=== PATIENT | male | born 2000 | race Caucasian/White ===

== ENCOUNTER 2021-05-07 13:25 | Emergency (ER) | payer OTHER, SELFPAY ==
[2021-05-07 13:56] VITALS: BP 133/94; PULSE 95; RESP 18; TEMP 36.1; O2SAT 98; BMI 22.6
--- NOTE | 2021-05-07 14:24 | ED.ASTHMA ---
HPI - Asthma General Chief Complaint: Asthma Stated Complaint: asthma flare up Time Seen by Provider: 05/07/21 14:21 Source: patient Mode of arrival: ambulatory Limitations: no limitations History of Present Illness HPI Narrative: 20-year-old male pat medical history significant for asthma presents to the emergency department with complaints of shortness of breath on exertion, he feels like this is his typical asthma exacerbation. 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 He tells me that he has been feeling short of breath for 2 days. No sick contacts. Patient is not vaccinated against COVID. He denies sore throat, cough, fevers, chills, nausea, vomiting, chest pain, weakness, headache, dizziness. He has never needed intubation the because of asthma. MD complaint: asthma attack Onset (ago): day(s) (2) Severity: moderate Context: ran out of meds (no longer has a PCP) Associated symptoms: none Asthma History: childhood onset Treatments Prior to Arrival: other (OTC inhaler ) Related Data Previous Rx's Medication Instructions Recorded albuterol sulfate 2.5 mg/0.5 mL 5 mg INHALATION Q6H PRN #30 ea 05/07/21 solution for nebulization albuterol sulfate 90 mcg/actuation 2 inh INHALATION Q4-6H PRN #1 ea 05/07/21 breath activated powder inhaler prednisone 20 mg tablet 40 mg PO DAILY 5 Days #10 tab 05/07/21 Allergies Allergy/AdvReac Type Severity Reaction Status Date / Time No Known Allergies Allergy Unverified 01/07/20 17:01 Review of Systems Review of Systems: Constitutional : No Weight loss, No Fever, No Chills, No Fatigue, No Malaise ENT/Mouth : No sore throat, No Rhinorrhea Eyes: No Eye Pain, No Swelling, No Redness Cardiovascular : No Chest Pain, No SOB, + Dyspnea on Exertion, No Orthopnea, No Edema, No Palpitations Respiratory : No Cough, No Sputum, No Wheezing Gastrointestinal : No Nausea, No Vomiting, No Diarrhea, No Constipation, No abdominal Pain, No Hematochezia, No Melena Genitourinary : No Dysuria, No Urinary Frequency, No Hematuria, Musculoskeletal : No joint pain, No Myalgias, No Joint Swelling Skin : No Skin Lesions, No rash Neuro : No Weakness, No Numbness, No Dizziness, No Headache All other systems reviewed and are negative Yes all other systems are reviewed and are negative [facility] Past Medical History Attestation statement: The following information was validated with the patient. Source: old records reviewed and nursing notes reviewed Medical History Asthma Social History Social History Advance Directives: No Advance Directives Information Provided: Yes Physical Exam Vital Signs: Vital Signs: Last Vital Signs Temp 97 F 05/07/21 13:56 Pulse 95 05/07/21 13:56 Resp 18 05/07/21 13:56 BP 133/94 H 05/07/21 13:56 Pulse Ox 98 05/07/21 13:56 BMI result Body Mass Index 22.6 VSS Appearance: Alert.? Oriented X3.? No acute distress.? No use of accessory muscles for breathing. Head: Normocephalic, atraumatic, no step-offs or deformities Eyes: Pupils equal, round and reactive to light.? ENT: Pharynx normal.? Neck: Normal inspection.? Neck supple.? CVS: Normal heart rate and rhythm.? Pulses normal.? Respiratory: No respiratory distress.?+ expiratory wheezes Abdomen: Soft and nontender.? Skin: Skin warm and dry.? Normal skin color.? Normal skin turgor.? Extremities: No lower extremity edema.? No calf ttp. 5/5 strength to bilateral upper and lower extremities Back: No midline tenderness, no C-spine tenderness, full range of motion, no CVA tenderness bilaterally Neuro: Oriented X 3.? No motor deficit.? No sensory deficit. Course Reevaluation(s) Reevaluation #1: COVID negative. Time: 15:25 Reevaluation #2: Patient reports significant improvement after Decadron and DuoNeb. Wheezing has resolved. I will discharge patient home with albuterol inhaler, and nebulized treatments. Time: 16:22 MDM - Asthma MDM Narrative Medical decision making narrative: 1428 20 yo male presents to ed with complaints of SOB on exertion, feels like his typical asthma attack . Not vaccinated. No recent sick contacts PE significant for expiratory wheezing Plan- duoneb. Medical Records Attestation: I reviewed the patient's medical records. Lab Data Attestation: I reviewed the patient's lab results. Labs: Lab Results 05/07/21 Range/Units 14:05 COVID-19 (BESSY) Negative (Negative) COVID-19 Clin Com See Note Critical Care Time Critical Care Time Critical Care Time: No Discharge Plan Discharge Clinical Impression: Asthma with acute exacerbation Patient Disposition: Home, Self-Care Instructions: Asthma (ED), How to Use a Breath-Activated Inhaler (ED) Additional Instructions: Take your medications as prescribed. If you were prescribed antibiotics today, it is important that you take your medication to their entirety, do not skip any doses, do not finish them early. Follow-up with your primary care provider this week. Return to the emergency department with new or worsening symptoms. Such as chest pain shortness of breath, nausea, vomiting, abdominal pain, headache, dizziness, fevers, chills In case of emergency call 911 Medication was sent to [facility] on [facility] in [place]. We gave you a list of PCP providers I advise you set up an appointment with a PCP Prescriptions: New albuterol sulfate 90 mcg/actuation aerosol powdr breath activated 2 inh inhalation Q4-6H PRN (Reason: shortness of breath or wheezing) Qty: 1 RF: 3 prednisone 20 mg tablet 40 mg PO DAILY 5 Days Qty: 10 RF: 0 albuterol sulfate 2.5 mg/0.5 mL solution for nebulization 5 mg inhalation Q6H PRN (Reason: shortness of breath or wheezing) Qty: 30 RF: 0 Referrals: Physician,Unknown J [Primary Care Provider] - 2 days Stand Alone Forms: Work/School Release
[2021-05-07 14:34] LABS: IDNOW Serial# 55D5AD1C
[2021-05-07 14:35] LABS: COVID-19 Test Negative (Negative)
[2021-05-07] MEDS: dexAMETHasone sod phosphate 10 MG/ML VIAL IVPUSH (14:59)
[2021-05-07] MEDS: Albuterol/Iprat 2.5/0.5MG 3 ML AMPUL.NEB INHALE (16:03)
== END 2021-05-07 16:50 | disposition home or self-care (01) ==
PROVIDERS: Emergency Provider Emergency Medicine
DX: J45.901 Unspecified asthma with (acute) exacerbation (principal); Z20.822 Contact with and (suspected) exposure to COVID-19; Z79.899 Other long term (current) drug therapy
CPT/HCPCS: 87635; 96374; 99283; J1100

== ENCOUNTER 2021-10-27 10:48 | Emergency (ER) | payer OTHER, SELFPAY ==
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
[2021-10-27 10:52] VITALS: BP 130/80; PULSE 8; O2SAT 97
[2021-10-27 10:53] VITALS: BP 118/76; PULSE 80; RESP 18; TEMP 36.6; O2SAT 96; BMI 21.7
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
== END 2021-10-27 13:45 | disposition home or self-care (01) ==
PROVIDERS: Emergency Provider Emergency Medicine; PCP Pediatrics
DX: S40.011A Contusion of right shoulder, initial encounter (principal); V43.62XA Car passenger injured in collision with other type car in traffic accident, initial encounter; M79.641 Pain in right hand; Y93.89 Activity, other specified; Y92.414 Local residential or business street as the place of occurrence of the external cause; Y99.9 Unspecified external cause status
CPT/HCPCS: 73030; 73130; 99283

== ENCOUNTER 2022-09-06 00:03 | Emergency (ER) | payer OTHER, SELFPAY ==
[2022-09-06 00:37] VITALS: BP 126/82; PULSE 100; RESP 16; TEMP 37.1; O2SAT 97; BMI 25.0
--- NOTE | 2022-09-06 04:29 | ED_ITS ---
HPI - Ear Problem General Chief complaint: Ear Problems Stated complaint: ? ear/sinus infection Time Seen by Provider: 09/06/22 04:20 Source: patient Mode of arrival: ambulatory Limitations: no limitations History of Present Illness HPI Narrative: 21-year-old male who presents emergency department for evaluation of bilateral ear pain and sinus pain. The patient states 4 days prior he had an asthma exacerbation and went to a clinic. He was started on albuterol nebulizers, albuterol inhaler and prednisone 40 mg once a day for 5 days. He has been taking the prednisone for 3 days. He states that over the past 2 days he has been having bilateral ear pain, decreased hearing and pressure with pain to his face over the frontal maxillary sinuses. He denied fever but he states that he has been experiencing chills. He has had a cough which is nonproductive. He denied chest pain. He states that his shortness of breath from his asthma exacerbation is significantly improved. Related Data Previous Rx's Medication Instructions Recorded albuterol sulfate 2.5 mg/0.5 mL 5 mg inhalation Q6H PRN shortness 05/07/21 solution for nebulization of breath or wheezing #30 ea albuterol sulfate 90 mcg/actuation 2 inh inhalation Q4-6H PRN 05/07/21 breath activated powder inhaler shortness of breath or wheezing #1 ea prednisone 20 mg tablet 40 mg PO DAILY 5 days #10 tabs 05/07/21 amoxicillin 500 mg capsule 1,000 mg PO BID 10 days #40 caps 09/06/22 Allergies Allergy/AdvReac Type Severity Reaction Status Date / Time No Known Allergies Allergy Unverified 01/07/20 17:01 Review of Systems Review of Systems: Yes all other systems are reviewed and are negative [facility] Past Medical History [facility] Narrative: Past medical history: Asthma. Social history: He denies tobacco use. He occasionally drinks alcohol. He denies drug use. Medical History Asthma Social History Social History Smoked in Last 30 Days: No Use of substances other than those prescribed or required for medical reasons: No Advance Directives: No Advance Directives Information Provided: No Physical Exam Vital Signs: Vital Signs: Last Vital Signs Temp 98.8 F 09/06/22 00:37 Pulse 100 09/06/22 00:37 Resp 16 09/06/22 00:37 BP 126/82 09/06/22 00:37 Pulse Ox 97 09/06/22 00:37 O2 Del Method Room Air 09/06/22 00:37 BMI result Body Mass Index 25.0 Const: General: cooperative and no acute distress Orientation/consciousness: oriented to person and oriented to place Limitations: no limitations HEENT: Head: Yes normal to inspection, Yes normocephalic and Yes atraumatic Ears: external ears normal and TM abnormal (Bilateral) erythematous and with loss of landmarks General nose exam: Normal external nose present Face and sinus: Yes sinus tenderness (Frontal and maxillary sinuses) Mouth: Normal oral and palatal mucosa present Throat: Yes posterior oropharynx normal Eyes: General: appearance normal, both eyes and all related structures Pupils: Equal, round and reactive pupils present Neck: Neck: Yes normal visual inspection, Yes no lymphadenopathy, Yes trachea midline and Yes supple Resp: Effort & Inspection: normal respiratory effort and able to speak in complete sentences Auscultation: clear to auscultation bilaterally Cardio: Rate: regular rate Rhythm: regular rhythm Heart sounds: S1 normal heart sound present, S2 normal heart sound present and no murmurs GI: Inspection: Yes normal to inspection Palpation (GI): Soft to palpation, nontender and no guarding Auscultation: normal bowel sounds Neuro: General: oriented to person and oriented to place Cranial nerves: Yes CN's II-XII intact bilaterally and Yes Equal, round and reactive pupils present Cognition (Neuro): normal cognition Motor exam (neuro): 5/5 motor strength present throughout Extrem: General: Yes normal to inspection Psych: Appearance: grossly normal Speech and movement: Normal speech and movement present Affect: normal affect Attitude: cooperative Medical Decision Making Medical Decision Making MDM Narrative: 21-year-old male with history of asthma with recent asthma exacerbation currently taking prednisone 40 mg daily for 5 days presents with 2 days of bilateral ear pain and 5th facial/frontal/maxillary sinus pain. Vital signs were normal. Physical examination is consistent with maxillary and sinus sinusitis as well as bilateral otitis media. Patient was started on amoxicillin 1000 mg twice a day for 10 days, Tylenol 1000 mg every 6 hours as needed for pain. Patient was told to complete his course of prednisone after completing this course he can take ibuprofen 40 mg 3 times a day as needed for pain. Patient was given printed and verbal instructions and discharged home Differential Diagnosis Differential diagnosis includes was not limited to sinusitis, otitis media, viral syndrome Discharge Plan Discharge Clinical Impression: Otitis media Qualifiers: Chronicity: acute Laterality: bilateral Sinusitis Qualifiers: Chronicity: acute Recurrence: non-recurrent Patient Disposition: Home, Self-Care Instructions: Sinusitis (ED), Ear Infection (ED) Additional Instructions: Your tympanic membranes in both ears are very red and swollen which is consistent with your infections. Your also tender when I push on your frontal and maxillary sinuses which are consistent with a sinus infection. Take amoxicillin 1000 mg twice a day for 10 days. While you are taking prednisone, do not take any NSAIDs (Motrin, Advil, ibuprofen, Aleve, naproxen). After you finish her prednisone take ibuprofen 200 mg pills, 2 pills every 6 hours as needed for pain. Take Tylenol (acetaminophen) 500 mg pills, 2 pills every 6 hours as needed for pain. Follow-up with your doctor in 2 days. Please return to the emergency department if your symptoms get worse or if you develop any symptoms that are concerning to you. Prescriptions: New amoxicillin 500 mg capsule 1,000 mg PO BID 10 Days Qty: 40 0RF No Action albuterol sulfate 90 mcg/actuation aerosol powdr breath activated 2 inh inhalation Q4-6H PRN (Reason: shortness of breath or wheezing) Qty: 1 3RF prednisone 20 mg tablet 40 mg PO DAILY 5 Days Qty: 10 0RF albuterol sulfate 2.5 mg/0.5 mL solution for nebulization 5 mg inhalation Q6H PRN (Reason: shortness of breath or wheezing) Qty: 30 0RF
[2022-09-06] MEDS: Acetaminophen 325 MG TABLET 975 MG PO (04:59)
[2022-09-06] MEDS: Amoxicillin 500 MG CAPSULE 1000 MG PO (05:00)
== END 2022-09-06 05:03 | disposition home or self-care (01) ==
PROVIDERS: Emergency Provider Emergency Medicine Emergency Medical Services
DX: H66.93 Otitis media, unspecified, bilateral (principal); J01.80 Other acute sinusitis
CPT/HCPCS: 99283; 99284